=== PATIENT | female | born 1995 | race Two or more races ===

== ENCOUNTER → 2017-10-10 | Outpatient (CLI) | payer OTHER ==
[~2017-10-10] MED LIST: ALBU8.5H8 INH; FLUT10.6 INH; GADOBUTROL 10 MMOL/10 ML PFS ONE
== END | disposition home or self-care (01) ==
LOC: CFH 15:18
PROVIDERS: ATTEND Nurse Practitioner
DX: G43.111 Migraine with aura, intractable, with status migrainosus (principal); R53.1 Weakness
CPT/HCPCS: 70553; A9585